=== PATIENT | male | born 1980 | race Caucasian/White ===

== ENCOUNTER → 2016-10-08 | Outpatient (CLI) | payer OTHER ==
--- NOTE | 2016-10-08 08:22 | DI ---
Indication: ITS.REASON: R07.81 Pleurodynia PROCEDURE: CT CHEST W/O CONTRAST: Encounter: Initial Comparison: None Technique: Axial CT images were performed through the chest without intravenous contrast. Coronal and sagittal two-dimensional reformats. Automated Exposure Control and Iterative Reconstruction dose reducing techniques were utilized. Findings: The lungs are clear. No pleural effusion or pneumothorax. No worrisome pulmonary nodule or mass. The central airways are patent. No axillary or mediastinal adenopathy. Heart size is normal. No pericardial effusion. The upper abdomen shows no acute findings. Bone windows are normal. Impression: Negative chest CT. No acute disease process seen. .
== END ==
LOC: IMA 07:25
PROVIDERS: ATTEND Family Medicine
DX: R07.81 Pleurodynia (principal)